=== PATIENT | male | born 1960 | race Hispanic/Latino ===

== ENCOUNTER → 2019-09-23 | Day surgery (SDC) | payer OTHER ==
[2019-09-21 16:26] LABS: ANION GAP 13.7 mmol/L (8-16); BLOOD UREA NITROGEN 14 mg/dL (7-26); BUN/CREATININE RATIO 13 (6-25); CALCIUM 9.6 mg/dL (8.4-10.2); CARBON DIOXIDE 24 mmol/L (22-29); CHLORIDE 101 mmol/L (98-107); CREATININE, SERUM 1.12 mg/dL (0.72-1.25); EST GLOMERULAR FILTRATION RATE > 60 ML/MIN (60-); GLUCOSE 296 mg/dL (74-118); POTASSIUM 3.7 mmol/L (3.5-5.1); SODIUM 135 mmol/L (136-145)
[~2019-09-23] MED LIST: ATORVASTATIN CA20 MG PO; BUPIVACAINE 0.25% 30ML SDV INJ ONE; CEFAZOLIN SOD 1 GM/NS 50ML 100 ML IV ONE; DEXAMETHASONE SOD PHOS INJ 4 MG/ML VIAL ONE; EPINEPHRINE 1 MG/ML 30ML VIAL ONE; FENTANYL CITRATE/PF 100MCG/2 ML INJ ONE; GABAPENTIN100 MG PO; GLIPIZIDE5 MG PO; INSULIN REGULAR, HUMAN 100 UNIT/1 ML 3ML VIAL ONE; LIDOCAINE 2% /EPINEPHRINE 20 ML SDV INJ ONE; LIDOCAINE HCL 2% LOCAL INJ 5 ML SDV VIAL INJ ONE; METFORMIN HCL500 MG PO; MIDAZOLAM HCL 2 MG/2 ML VIAL ONE; NAPROXEN250 MG PO; ONDANSETRON HCL INJ 2MG/ML 2ML 2 MG/ML VIAL ONE; PROPOFOL IV EMULSION 10 MG/ML 20 ML VIAL ONE; ROCURONIUM BROMIDE 10 MG/ML 5ML VIAL ONE
--- OUTSIDE RECORDS SUMMARY | 2019-09-23 09:41 | XMS REPORT ---
[facility] [place] Address Unknown Phone Unavailable Care Team Providers Care Senior Grant Writer Name Role Phone Unavailable Unavailable Problems This patient has no known problems. Allergies, Adverse Reactions, Alerts This patient has no known allergies or adverse reactions. Medications This patient has no known medications. Encounters Start Date/Time End Date/Time Encounter Type Admission Type Attending [facility] Care Department Encounter ID 2019-03-27 08:22:24 2019-03-27 08:22:24 Outpatient [facility] [id number] 2019-03-07 14:18:02 2019-03-07 14:18:02 Outpatient [facility] [id number] 2019-02-11 16:34:40 2019-02-11 16:34:40 Outpatient [facility] [id number] 2018-06-09 14:43:40 2018-06-09 14:43:40 Outpatient [facility] [id number] 2018-02-28 00:00:00 2018-02-28 00:00:00 Outpatient [facility] [id number] 2018-02-28 00:00:00 2018-02-28 00:00:00 Outpatient [facility] [id number] 2018-02-11 13:02:53 2018-02-11 13:02:53 Outpatient [facility] [id number] 2018-01-21 08:38:51 2018-01-21 08:38:51 Outpatient [facility] [id number] 2018-01-21 08:26:18 2018-01-21 08:26:18 Outpatient [facility] [id number] 2018-01-17 00:00:00 2018-01-17 00:00:00 Outpatient [facility] [id number] 2018-01-08 00:00:00 2018-01-08 00:00:00 Outpatient [facility] [id number] 2018-01-07 13:20:23 2018-01-07 13:20:23 Outpatient [facility] [id number]
[2019-09-23 15:50] VITALS: BP 111/64
--- NOTE | 2019-09-25 16:39 | Operative Report ---
DATE OF PROCEDURE: 09/23/2019 SURGEON: Macho Villegas MD PREOPERATIVE DIAGNOSIS: Right shoulder rotator cuff tear. POSTOPERATIVE DIAGNOSES: Right shoulder rotator cuff tear and right shoulder synovitis. OPERATIONS AND PROCEDURES PERFORMED: The patient underwent right shoulder examination under anesthesia, right shoulder arthroscopy, right shoulder debridement of synovitis, right shoulder arthroscopic rotator cuff reconstruction, right shoulder arthroscopic subacromial decompression, and acromioplasty. FUR OPERATOR: KARTHIK Ho. ANESTHESIA: General endotracheal intubation anesthesia. IV FLUIDS: Per the anesthesia record. COMPLICATIONS: None. BRIEF DESCRIPTION OF THE PATIENT'S OPERATIVE PROCEDURE: Mr. Gallegos was taken to the operating room and placed in the supine position on the operating table. Following induction of general anesthesia as well as endotracheal intubation, the patient's right upper extremity was examined under anesthesia. He was found to have full passive range of motion of the shoulder joint. The general appearance of the shoulder was normal. There was no evidence of instability. The patient's upper extremity was prepped and draped in standard surgical fashion. Standard posterolateral and anterior port were created without difficulty. The scope was placed within the shoulder joint atraumatically. Examination of the glenohumeral articulation demonstrated no significant evidence of chondromalacia. There was mild diffuse synovitis within the shoulder joint. There were no loose bodies in the shoulder joint. Examination of the rotator cuff tissue demonstrated a full-thickness tear of the anterior leading edge of the supraspinatus tendon. There was mild retraction of the tissue. A shaver was placed in the shoulder joint and the synovitis was debrided. The torn and scarred edges of the rotator cuff were also debrided to healthy tissue. The insertion site for the rotator cuff was also debrided to a bleeding bony bed. The shoulder was deflated with sterile normal saline. The scope was placed in the subacromial space and significant bursal inflammation was encountered. A lateral portal was created through an outside-in technique. A bursectomy was performed. The rotator cuff tear was easily identified. An accessory anterolateral portal was created and the rotator cuff insertion was further debrided to a bleeding bony bed. A single triple-loaded suture anchor was inserted into the greater tuberosity of the humerus. The suture arms from that anchor were then woven through the rotator cuff tissue. The rotator cuff tissue was then advanced and tied firmly over its normal insertion site. This resulted in complete reapproximation of the patient's rotator cuff injury. The patient had a significantly laterally downward sloping acromion. The coracoacromial ligament was resected. An acromioplasty was performed. The shoulder was then placed in range of motion and found to no longer impinge upon the acromion. The shoulder was deflated with a sterile normal saline. The portal sites were closed. Sterile dressings were applied. The patient was provided a shoulder immobilizer, awakened, and taken to the postanesthesia care in stable condition. Lesly Arias acted as a pharmaceutical assistant for this case and was necessary for both prepping and draping the patient as well as position of the arm and the passage of suture that allowed this case to be successful. MD EMILY Green/MIGUEL /[id number]
== END | disposition home or self-care (01) ==
LOC: OR 09:36
PROVIDERS: ATTEND Specialist
DX: M75.121 Complete rotator cuff tear or rupture of right shoulder, not specified as traumatic (principal); M65.811 Other synovitis and tenosynovitis, right shoulder; G89.29 Other chronic pain; E11.9 Type 2 diabetes mellitus without complications; E78.5 Hyperlipidemia, unspecified; K21.9 Gastro-esophageal reflux disease without esophagitis; N39.0 Urinary tract infection, site not specified; F32.9 Major depressive disorder, single episode, unspecified; Z01.810 Encounter for preprocedural cardiovascular examination; Z01.812 Encounter for preprocedural laboratory examination; Z79.84 Long term (current) use of oral hypoglycemic drugs; Z91.81 History of falling; Z87.891 Personal history of nicotine dependence
CPT/HCPCS: 29826; 29827; 36415 ×2; 80048; 82948; 93005; C1713; J0690; J1100; J2001 ×2; J2405; J2704; J1817; J2250; J3010

== ENCOUNTER 2021-04-25 04:48 | Emergency (ER) | payer SELFPAY ==
[~2021-04-25] VITALS: Ht 160 cm; Wt 68.0 kg
[~2021-04-25 04:48] MED LIST changes: -BUPIVACAINE 0.25% 30ML SDV INJ ONE; -CEFAZOLIN SOD 1 GM/NS 50ML 100 ML IV ONE; -DEXAMETHASONE SOD PHOS INJ 4 MG/ML VIAL ONE; -EPINEPHRINE 1 MG/ML 30ML VIAL ONE; -FENTANYL CITRATE/PF 100MCG/2 ML INJ ONE; -INSULIN REGULAR, HUMAN 100 UNIT/1 ML 3ML VIAL ONE; -LIDOCAINE 2% /EPINEPHRINE 20 ML SDV INJ ONE; -LIDOCAINE HCL 2% LOCAL INJ 5 ML SDV VIAL INJ ONE; -MIDAZOLAM HCL 2 MG/2 ML VIAL ONE; -ONDANSETRON HCL INJ 2MG/ML 2ML 2 MG/ML VIAL ONE; -PROPOFOL IV EMULSION 10 MG/ML 20 ML VIAL ONE; -ROCURONIUM BROMIDE 10 MG/ML 5ML VIAL ONE
[2021-04-25] MEDS ORDERED: SODIUM CHLORIDE 0.9% 1000ML 1,000 ML IV STA (05:02)
[2021-04-25 05:08] LABS: BASOPHILS % 0.4 % (0.0-1.0); EOSINOPHILS % 0.4 % (0.0-6.0); HEMATOCRIT 43.7 % (38.2-49.6); HEMOGLOBIN 14.9 g/dL (14.0-18.0); LYMPHOCYTES # (AUTO) 1.2 (1.0-3.2); LYMPHOCYTES % 15.2 % (18.0-39.1); MEAN CORPUSCULAR HEMOGLOBIN 31.4 pg (28-32); MEAN CORPUSCULAR HGB CONC 34.1 g/dL (31-35); MONOCYTES # (AUTO) 0.5 (0.2-0.8); MONOCYTES % 6.2 % (4.4-11.3); NEUTROPHILS # (AUTO) 6.2 (2.1-6.9); NEUTROPHILS % 77.4 % (38.7-80.0); PLATELET COUNT 231 x10e3/uL (140-360); RED BLOOD COUNT 4.75 x10e6/uL (4.3-5.7); RED CELL DISTRIBUTION WIDTH 13.4 % (11.7-14.4)
[2021-04-25] MEDS ORDERED: DONNATAL/LIDOCAINE/MAALOX 30 ML SUSP PO STA (05:09)
[2021-04-25] MEDS ORDERED: ONDANSETRON HCL INJ 2MG/ML 2ML 2 MG/ML VIAL IV PRN (05:15)
[2021-04-25 05:22] LABS: ALBUMIN 4.4 g/dL (3.5-5.0); ALBUMIN/GLOBULIN RATIO 1.5 (0.8-2.0); ANION GAP 18.1 mmol/L (8-16); CALCIUM 9.4 mg/dL (8.4-10.2); CREATININE, SERUM 1.23 mg/dL (0.72-1.25); POTASSIUM 4.1 mmol/L (3.5-5.1)
[2021-04-25] MEDS ORDERED: BELLADONNA ALK/PHENOBARBITAL 5 ML UDC ONE (05:26)
[2021-04-25] MEDS ORDERED: LIDOCAINE VISC 2% SOLN 15 ML UDC ONE (05:26)
[2021-04-25] MEDS ORDERED: MAGNESIUM/ALUMINUM/SIMETHICONE 30 ML UDC ONE (05:27)
[2021-04-25 06:08] LABS: CLARITY,URINE SL CLOUDY (CLEAR); COLOR,URINE YELLOW (YELLOW); KETONES,URINE 1+ (NEGATIVE); LEUKOCYTE ESTERASE ,URINE NEGATIVE (NEGATIVE); NITRITE,URINE NEGATIVE (NEGATIVE); PROTEIN,URINE DIPSTICK 1+ (NEGATIVE)
[2021-04-25 06:09] LABS: URINE UROBILINOGEN 1 mg/dL (0.2 - 1)
[2021-04-25] MEDS ORDERED: FENTANYL CITRATE/PF 100MCG/2 ML INJ IV PRN (06:15)
[2021-04-25 06:26] LABS: BACTERIA,URINE RARE /HPF; EPITHELIAL CELLS,URINE RARE /LPF; RBC,URINE >50 /HPF (0-5); WBC,URINE (MAN) 0-5 /HPF (0-5)
[2021-04-25] MEDS ORDERED: SODIUM CHLORIDE 0.9% 50ML 50 ML ONE (07:22)
[2021-04-25] MEDS ORDERED: IOPAMIDOL 370 MG/ML 200 ML INFUS..BTL INJ ONE (07:22)
[2021-04-25] MEDS ORDERED: KETOROLAC TROMETHAMINE 30 MG/ML VIAL IV STA (07:26)
[2021-04-25] MEDS ORDERED: TYLENOL # 31 EA PO (07:26)
[2021-04-25] MEDS ORDERED: ONDANSETRON ODT4 MG PO (07:26)
[2021-04-25] MEDS ORDERED: FLOMAX0.4 MG PO (07:26)
[2021-04-25 07:50] VITALS: BP 142/86
== END 2021-04-25 07:52 | disposition home or self-care (01) ==
LOC: ER 05:02
DX: N13.2 Hydronephrosis with renal and ureteral calculous obstruction (principal); R11.10 Vomiting, unspecified; E11.9 Type 2 diabetes mellitus without complications; Z79.84 Long term (current) use of oral hypoglycemic drugs; E78.5 Hyperlipidemia, unspecified; Z79.899 Other long term (current) drug therapy
CPT/HCPCS: 36415; 74177; 80053; 81001; 83690; 84484; 85025; 93005; 99284; C9113; J2405; J3010; J7030; Q9967